=== PATIENT | female | born 1930 | race Caucasian/White ===

== ENCOUNTER → 2017-12-21 | Outpatient (CLI) | payer MEDICARE ==
[~2017-12-21] MED LIST: AMLO5TAB2 PO; APIX5TAB PO; HYDR-2534 PO; METO-391 PO; METO25TA6 PO; POTA-79 PO; REGADENOSON 0.4 MG/5 ML PF SYG IVP ONE; ROPI0.5T PO; SIMV20TA6 PO; TRIM100T PO
== END | disposition home or self-care (01) ==
LOC: SHCH 07:49
PROVIDERS: ATTEND Internal Medicine Cardiovascular Disease
DX: I48.2 Chronic atrial fibrillation (principal); I44.2 Atrioventricular block, complete
CPT/HCPCS: 78452; 93017; 96374; A9500 ×2; J2785

== ENCOUNTER 2018-01-01 07:44 | Observation (INO) | payer MEDICARE ==
[2017-12-28 08:40] VITALS: BP 151/73
[2017-12-28 08:40] LABS: BASOPHILS % (AUTO) 0.9 % (0.0-5.0); EOSINOPHILS % (AUTO) 1.6 % (0.0-8.0); HEMATOCRIT 41.6 % (36-48); LYMPHOCYTES % (AUTO) 19.2 % (21.0-51.0); MEAN CORPUSCULAR HEMOGLOBIN 32.7 pg (27.0-33.0); MEAN CORPUSCULAR HGB CONC 35.2 g/dL (32.0-36.0); MEAN CORPUSCULAR VOLUME 92.7 fL (79-99); NEUTROPHILS % (AUTO) 68.3 % (40.0-77.0); PLATELET COUNT (AUTO) 270 K/uL (130-400); RED BLOOD CELL COUNT(AUTO) 4.49 MIL/uL (4.00-5.50); RED CELL DISTRIBUTION WIDTH 14.3 % (11.0-15.5); WHITE BLOOD COUNT (AUTO) 5.2 K/uL (4.8-10.8)
[2017-12-28 08:46] LABS: CREATININE 0.9 mg/dL (0.5-1.5); POTASSIUM 3.1 mmol/L (3.5-5.1)
[2017-12-28 09:02] LABS: INR 1.17 (0.85-1.15); PARTIAL THROMBOPLASTIN TIME 30.6 SEC (26.3-35.5); PROTHROMBIN TIME 12.2 SEC (9.6-11.6)
[~2018-01-01] VITALS: Ht 162.6 cm; Wt 90.2 kg
[~2018-01-01 07:44] MED LIST changes: -METO25TA6 PO; -POTA-79 PO; -REGADENOSON 0.4 MG/5 ML PF SYG IVP ONE; -SIMV20TA6 PO; -TRIM100T PO
[2018-01-01 08:05] VITALS: BP 133/66
[2018-01-01] MEDS ORDERED: SIMV20TA6 PO (08:35)
[2018-01-01] MEDS ORDERED: METO25TA6 PO (08:35)
[2018-01-01] MEDS ORDERED: TRIM100T PO (08:35)
[2018-01-01] MEDS ORDERED: SODIUM CHLORIDE 0.9% 1000ML 1,000 ML IV ONE (08:56)
[2018-01-01] MEDS ORDERED: POTASSIUM CHLORIDE 10MEQ/100ML 10 MEQ/100 ML ML IV SCH (10:00)
[2018-01-01] MEDS ORDERED: POTASSIUM CHLORIDE 20 MEQ ERTAB PO SCH (10:00)
[2018-01-01] MEDS ORDERED: POTASSIUM CHLORIDE 10MEQ/100ML 100 ML IV SCH (10:10)
[2018-01-01] MEDS ORDERED: MIDAZOLAM HCL 1 MG/ML 2ML VIAL ONE ×3 (11:28→13:13)
[2018-01-01] MEDS ORDERED: MEPERIDINE-PF 25 MG/ML SYG ONE ×3 (11:29→13:13)
[2018-01-01] MEDS ORDERED: ISOVUE-300 100 ML VIAL IV ONE (11:34)
[2018-01-01] MEDS ORDERED: ACETAMINOPHEN 325 MG TAB PO PRN (14:00)
[2018-01-01] MEDS ORDERED: ACETAMINOPHEN-CODEINE 300/30MG TAB PO PRN ×2 (14:00)
[2018-01-01 14:15] VITALS: BP 126/58
[2018-01-01 14:30] VITALS: BP 114/64
[2018-01-01 19:02] VITALS: BP 128/60
[2018-01-01] MEDS ORDERED: ROPINIROLE HCL 1 MG TABLET PO SCH (21:00)
[2018-01-01] MEDS ORDERED: ATORVASTATIN CALCIUM 10 MG TABLET PO SCH (21:00)
[2018-01-01] MEDS: METOPROLOL TARTRATE 25 MG TAB PO SCH (21:26)
[2018-01-01 23:04] VITALS: BP 126/58
[2018-01-02 03:35] VITALS: BP 122/59
[2018-01-02 07:57] VITALS: BP 110/54
[2018-01-02] MEDS: METOPROLOL TARTRATE 25 MG TAB PO SCH (08:18)
[2018-01-02] MEDS ORDERED: HYDROCHLOROTHIAZIDE 25 MG TABLET PO SCH (09:00)
[2018-01-02] MEDS ORDERED: TRIMETHOPRIM 100 MG PO SCH (09:00)
[2018-01-02 10:00] LABS: CREATININE 0.9 mg/dL (0.5-1.5)
[2018-01-02 10:02] LABS: POTASSIUM 2.5 mmol/L (3.5-5.1)
[2018-01-02] MEDS ORDERED: LIDOCAINE HCL-MPF 1% 2ML VIAL IVP PRN (10:15)
[2018-01-02] MEDS ORDERED: POTASSIUM CHLORIDE 10% ELIXIR 20 MEQ/15 ML UDCUP PO PRN (10:15)
[2018-01-02] MEDS ORDERED: POTASSIUM CHLORIDE 20MEQ/100ML 100 ML IV PRN (10:15)
[2018-01-02] MEDS: POTASSIUM CHLORIDE 20 MEQ ERTAB PO PRN ×2 (10:23→12:56)
[2018-01-02 11:20] VITALS: BP 126/53
[2018-01-02 16:00] VITALS: BP 134/62
[2018-01-02] MEDS ORDERED: POTA-79 PO (17:31)
== END 2018-01-02 18:10 | disposition home or self-care (01) ==
LOC: DAH 07:44 → DAHIP 07:45 → 2DH 14:17
PROVIDERS: ADMIT Internal Medicine; ATTEND Internal Medicine
DX: I42.9 Cardiomyopathy, unspecified (principal); D68.69 Other thrombophilia; E78.5 Hyperlipidemia, unspecified; E88.81 Metabolic syndrome and other insulin resistance; I13.0 Hypertensive heart and chronic kidney disease with heart failure and stage 1 through stage 4 chronic kidney disease, or unspecified chronic kidney disease; N18.2 Chronic kidney disease, stage 2 (mild); I50.22 Chronic systolic (congestive) heart failure; I44.2 Atrioventricular block, complete; I48.2 Chronic atrial fibrillation; I25.10 Atherosclerotic heart disease of native coronary artery without angina pectoris; J44.9 Chronic obstructive pulmonary disease, unspecified; Z80.3 Family history of malignant neoplasm of breast; Z82.49 Family history of ischemic heart disease and other diseases of the circulatory system; Z82.5 Family history of asthma and other chronic lower respiratory diseases; Z83.3 Family history of diabetes mellitus; Z79.01 Long term (current) use of anticoagulants
CPT/HCPCS: 33225; 33229; 36415 ×3; 71045; 80048 ×2; 84132 ×2; 85025; 85610; 85730; 93005; 96374; A4606; C1769 ×3; C1900; C2621; G0378 ×34; J2175 ×3; J2250 ×3; J3480; J3490; J7030; Q9967; 99152; 99153

== ENCOUNTER → 2018-05-08 | Outpatient (CLI) | payer MEDICARE ==
[~2018-05-08] MED LIST changes: -AMLO5TAB2 PO; -METO-391 PO; +METO25TA6 PO; +POTA-79 PO; +SIMV20TA6 PO; +TRIM100T PO
== END | disposition home or self-care (01) ==
LOC: RAH 11:55
PROVIDERS: ATTEND Internal Medicine
DX: M25.551 Pain in right hip (principal); M79.604 Pain in right leg; I48.91 Unspecified atrial fibrillation; I13.0 Hypertensive heart and chronic kidney disease with heart failure and stage 1 through stage 4 chronic kidney disease, or unspecified chronic kidney disease; I50.22 Chronic systolic (congestive) heart failure; E11.22 Type 2 diabetes mellitus with diabetic chronic kidney disease; E78.5 Hyperlipidemia, unspecified; N18.2 Chronic kidney disease, stage 2 (mild)
CPT/HCPCS: 73501; 73552

== ENCOUNTER → 2018-07-16 | Outpatient (CLI) | payer MEDICARE | END | disposition home or self-care (01) | LOC: SHCH 10:53 | PROVIDERS: ATTEND Internal Medicine Cardiovascular Disease | DX: I08.2 Rheumatic disorders of both aortic and tricuspid valves (principal); I50.22 Chronic systolic (congestive) heart failure; I49.5 Sick sinus syndrome; I48.91 Unspecified atrial fibrillation | CPT/HCPCS: 93306 ==